=== PATIENT | female | born 1995 | race Caucasian/White ===

== ENCOUNTER 2017-06-18 13:16 | Emergency (ER) | payer OTHER ==
[2017-06-18 15:36] LABS: APPEARANCE CLEAR (CLEAR); BILIRUBIN NEGATIVE (NEGATIVE); COLOR YELLOW (YELLOW); GLUCOSE NEGATIVE (NEGATIVE); KETONE NEGATIVE (NEGATIVE); NITRITE NEGATIVE (NEGATIVE); PROTEIN NEGATIVE (NEGATIVE); UROBILINOGEN NORMAL (NORMAL)
[2017-06-18 15:37] LABS: EPITHELIAL CELLS 0-5 /hpf (0-5)
[2017-06-18 15:38] LABS: BACTERIA MODERATE /hpf (NONE SEEN)
[2017-06-18 16:15] LABS: HCG SERUM NEGATIVE (NEGATIVE)
== END 2017-06-18 18:15 | disposition other institution (70) ==
LOC: D.ER 13:16
PROVIDERS: Emergency Medicine
DX: T76.21XA Adult sexual abuse, suspected, initial encounter (principal); F17.200 Nicotine dependence, unspecified, uncomplicated